=== PATIENT | male | born 1970 | race Caucasian/White ===

== ENCOUNTER 2017-02-13 19:13 | Observation (INO) | payer BC ==
--- NOTE | ~2017-02-13 | HP ---
History And Physical [place] [address] [facility] [place]. [address] NAME: TUNDE WHITMAN : 68 STATUS : ADM Isidoro PAT#: [id number] AGE: 46 ADM/REG DATE : 02/14/17 MR#: [id number] REPORT SERV DATE: 02/14/17 DICTATED BY: SIMONE BARFIELD DATE: 02/14/17 REPORT STATUS : Draft TRANSCRIBED BY: MODAnkita DATE: 02/14/17 DATE OF ADMISSION: 02/14/2017 SURVEILLANCE OBSERVER: Manuel Carranza. PAIN MANAGEMENT: Dr. Perkins. CHIEF COMPLAINT: Heart racing and episodic chest pain. HISTORY OF PRESENT ILLNESS: A pleasant 46-year-old white male with no known history of CAD, but seen recently by Dr. Manuel Carranza in [place], [place], for complaints of palpitations and episodic chest pain. The patient recently underwent echocardiogram and carotid ultrasound in 11/2016 and 12/2016 respectively, and the patient reports possible recent stress test at [facility], which will be requested. The patient confirms that he saw Dr. Carranza on 02/11/2017, for routine followup after hospitalization, and Holter report results on 02/13/2017 around 1200 hours after eating a lunch of grilled chicken and [place] fries, he states that his heart would "flop." His blood pressure was checked shortly after that event and was noted to be 210/110 with a heart rate of 120. He reports substernal chest pain that radiates to his left jaw with some facial discomfort and into his left arm. He reports associated shortness of breath, nausea, and belching. Denies any diaphoresis or dizziness. At its most intense, he rates the chest discomfort as 7/10 at the time of interview in the [facility], he is pain free. He states the episode lasted hours in duration. He feels quite strongly that his episodes are related to meals that seems to be the pattern and the trend. He did take Pepto-Bismol, Zantac, and Maalox without any improvement in his symptoms. He states these events have occurred daily over the last two weeks. The patient confirms a personal history of a stroke in 2013 with right-sided weakness. Denies history of heart attack, DVT, or pulmonary embolus. The patient denies any recent fever or chills. Reports frequent palpitations. No syncopal episodes. Denies PND or orthopnea. PAST MEDICAL HISTORY: 1. IgA deficiency. 2. Hypertension. 3. GERD. 4. Cholesterol, borderline, followed by PCP. 5. Chronic back pain. 6. Parkinson's. 7. Gastroparesis. 8. History of stroke in 2014 with right-sided weakness. 9. Anxiety. 10.History of sarcoidosis. PAST SURGICAL HISTORY: 1. Biopsy of lymph nodes to diagnose sarcoidosis. 2. Left ankle surgery. History And Physical [address] [address] NAME: TUNDE WHITMAN : 68 STATUS : ADM Isidoro PAT#: [id number] AGE: 46 ADM/REG DATE : 02/14/17 MR#: [id number] REPORT SERV DATE: 02/14/17 DICTATED BY: SIMONE BARFIELD DATE: 02/14/17 REPORT STATUS : Draft TRANSCRIBED BY: ELI DATE: 02/14/17 3. Right wrist surgery. 4. Hernia repair. SOCIAL HISTORY: He is with one child. He is employed as a nat instructor. He does not have a structured exercise routine. Denies tobacco, alcohol, or illicits. FAMILY HISTORY: Father with a heart attack at 42, of brain cancer at 60. Mother with a stroke in her 60s, remains alive at 72. REVIEW OF SYSTEMS: A 14-point review of systems was performed, significant for HPI, including recently taken off Cardizem which he has been taking for palpitations one month ago by his PCP or smeller with a recent cardiac workup including echo, ultrasound of carotids, event monitor, and stress test all at [facility]. Otherwise, complete review of systems obtained and negative. ALLERGIES: ALLERGY TO PENICILLIN, CONVULSIONS; PHENERGAN CAN CAUSE AGITATION; REGLAN, AGITATION. HOME MEDICATIONS: Xanax 0.25 mg daily p.r.n., Nexium 40 mg daily, hydrocodone 10/325 twice daily p.r.n., immune globulin monthly, lisinopril 5 mg nightly, probiotic daily, Mirapex 1 mg three times daily, Zantac 150 mg twice daily p.r.n., and domperidone 10 mg t.i.d. PHYSICAL EXAMINATION: VITAL SIGNS: Bilateral blood pressures on arrival; right 143/85, left 142/90; pulse 76; respirations 16; temperature 97.7; O2 saturation 98% on room air. Height 6 feet 3 inches, weight 176 pounds, and BMI 22. GENERAL: Flat affect, cooperative, in no apparent distress. HEENT: Pupils 2 mm, sclera nonicteric. Nares patent. Moist mucous membranes. No xanthelasma. NECK: Trachea midline, no thyromegaly. No JVD. No bruits. LYMPH: No cervical lymphadenopathy. No supraclavicular lymphadenopathy. RESPIRATORY: Unlabored respirations. Breath sounds clear bilaterally to posterior auscultation. No wheezes or rhonchi. CARDIOVASCULAR: Regular rate. No murmur, rub or gallop appreciated. Extremities without edema. Pulses 2+ bilaterally. ABDOMEN: Soft, nontender, nondistended, normal bowel sounds auscultated throughout. No organomegaly. SKIN: Warm, dry extremities. No pallor, or cyanosis. PSYCHIATRIC: Appropriate affect. Alert, oriented x3. EXTREMITIES: Minor tremor right hand with right-sided weakness. LABORATORY DATA: 1. Troponin less than 0.02 x2. Potassium 4.4, BUN 13, creatinine 1.47, glucose 99, and magnesium 2.3. WBC 7.6, hemoglobin 15.7, hematocrit 46.6, and platelet count 254,000. 2. EKG: Sinus rhythm (brief episodes of a sinus tach less than 110 beats per minute). 3. Echo, 11/2016 ([facility]): EF 65%. Mild LVH. 4. MPI at [facility] report requested. History And Physical [address] [address] NAME: TUNDE WHITMAN : 68 STATUS : ADM Isidoro PAT#: [id number] AGE: 46 ADM/REG DATE : 02/14/17 MR#: [id number] REPORT SERV DATE: 02/14/17 DICTATED BY: SIMONE BARFIELD DATE: 02/14/17 REPORT STATUS : Draft TRANSCRIBED BY: ELI DATE: 02/14/17 5. 12/2016 carotid ultrasound: Normal bilateral carotids. 6. Recent IRVIN: Per Dr. Carranza' note of 02/11/2017, infrequent PACs and PVCs with episodes of sinus tachycardia. ASSESSMENT AND PLAN: 1. Chest pain with atypical features. The patient has been observed in the CPOU overnight to rule out myocardial infarction with serial enzymes and serial EKGs and held n.p.o. Await most recent stress test from [facility]. If greater than six months, we will proceed with a stress test today. If recent, we will consult Cardiology for further cardiac testing such as an arteriogram if warranted. Further recommendations forthcoming. 2. Elevated blood pressure. The patient on lisinopril 5 mg daily. We will monitor blood pressure and continue home medications. 3. Low sinus tachycardia. The patient was asked to follow up with Dr. Manuel Carranza after this hospitalization. We will arrange close Cardiology followup after review of all outpatient records. 4. Borderline dyslipidemic. Diet and exercise discussed. 5. History of gastroparesis. The patient has been recommended to follow up with his GI physician, Dr. Jake Rios at [facility] for further GI workup if all studies here are negative for any cardiac ischemia. FRANCISCO/ELI MICHAEL Meraz, TABITHA-ZIGGY / [id number] CC: Simone Barfield, MSN, [employer]-CHRISTOPHER GORE
[~2017-02-13 19:13] MED LIST: BEE POLLEN PO; LORTAB10 PO; QUERCITIN PO; [UNRECOGNIZED DRUG - OTHER] PO
[2017-02-13 19:43] LABS: BASOPHILS 0.1 %; BASOPHILS ABSOLUTE 0.01 10/3/uL (0.0-0.16); EOSINOPHILS 0.4 %; EOSINOPHILS ABSOLUTE 0.03 10/3/uL (0.0-0.53); HEMOGLOBIN 15.7 g/dL (13.6-17.8); IMMATURE GRANULOCYTES 0.1 %; IMMATURE GRANULOCYTES ABSOLUTE 0.01 10/3/uL (0.0-0.11); LYMPHOCYTES 18.3 %; LYMPHOCYTES ABSOLUTE 1.39 10/3/uL (0.67-4.30); MEAN CORPUS HGB CONC 33.7 g/dL (32.0-36.0); MEAN CORPUSCULAR HEMOGLOB 28.1 pg (26.0-34.0); MEAN PLATELET VOLUME 10.3 fL (9.2-13.0); MONOCYTES 9.4 %; MONOCYTES ABSOLUTE 0.71 10/3/uL (0.21-1.20); NEUTROPHILS 71.7 %; NEUTROPHILS ABSOLUTE 5.43 10/3/uL (2.02-8.40); PLATELET COUNT 254 10/3/uL (150-400); RBC DISTRIBUTION WIDTH 12.6 % (12.0-16.0); RED CELL COUNT 5.58 10/6/uL (4.7-6.1)
[2017-02-13 19:44] LABS: HEMATOCRIT 46.6 % (40.0-51.0); MANUAL DIFF NO %; MEAN CORPUSCULAR VOLUME 83.5 fL (80-100); WHITE BLOOD CELLS 7.6 10/3/uL (4.5-10.5)
[2017-02-13 19:56] LABS: PARTIAL THROMBO TIME 24.7 SEC (22.5-37.2); PROTIME (NOT ORD) 12.9 SEC (12.0-14.5)
[2017-02-13 20:00] LABS: BUN (BLOOD UREA NITROGEN) 13 MG/DL (6-23); CALCIUM, SERUM 8.7 MG/DL (8.5-10.4); CHEST PAIN PROFILE TAT 0 Hrs 22 Mins; CHLORIDE, SERUM 104 MMOL/L (96-112); CO2 (CARBON DIOXIDE) 31 MMOL/L (24-34); CREATININE 1.47 MG/DL (0.70-1.30); GFR AFRICAN AMERICAN 65 ML/MIN (>=60); GFR NON AFRICAN AMERICAN 56 ML/MIN (>=60); GLUCOSE, SERUM 99 MG/DL (60-99); POTASSIUM, SERUM 4.4 MMOL/L (3.5-5.3); SODIUM, SERUM 139 MMOL/L (135-148); TROPONIN I <0.02 NG/ML (<0.05)
[2017-02-14] MEDS ORDERED: NORCO1 TAB PO (01:19)
[2017-02-14] MEDS ORDERED: PRIN5 PO (01:20)
[2017-02-14] MEDS ORDERED: MIRAPEX1 MG PO (01:20)
[2017-02-14] MEDS ORDERED: X25 PO (01:21)
[2017-02-14] MEDS ORDERED: DOMPERIDONE PO (01:21)
[2017-02-14] MEDS ORDERED: PROBIOTIC PO (01:22)
[2017-02-14] MEDS ORDERED: ZANTAC 150 PO (01:23)
[2017-02-14] MEDS ORDERED: NEXIUM40 PO (01:23)
[2017-02-14] MEDS ORDERED: IVIGLIQ IV (01:24)
== END 2017-02-14 17:48 | disposition home or self-care (01) ==
LOC: ER 19:13 → CDU1 02-14 00:53
PROVIDERS: Emergency Medicine
DX: R07.89 Other chest pain (principal); D80.3 Selective deficiency of immunoglobulin G [IgG] subclasses; I10 Essential (primary) hypertension; K21.9 Gastro-esophageal reflux disease without esophagitis; G20 Parkinson's disease; F41.9 Anxiety disorder, unspecified; D86.9 Sarcoidosis, unspecified; Z98.890 Other specified postprocedural states; Z88.8 Allergy status to other drugs, medicaments and biological substances; Z79.01 Long term (current) use of anticoagulants; Z79.899 Other long term (current) drug therapy; I49.5 Sick sinus syndrome
CPT/HCPCS: 71020; 74176; 78452; 80048; 83735; 84484; 85025; 85610; 85730; 93005; 93017; 99285; A9270-GY; A9502; G0378